=== PATIENT | male | born 1985 | race Caucasian/White ===

== ENCOUNTER 2016-02-27 11:43 | Day surgery (SDC) | payer BC ==
[~2016-02-27 11:43] MED LIST: RINGERS SOLUTION,LACTATED 1,000 ML IV PRN
[2016-02-27] MEDS ORDERED: BUPIVACAINE HCL 50 ML VIAL IJ ONE ×2 (13:09)
[2016-02-27] MEDS ORDERED: BACITRACIN ZINC 30 APPL TUBE TP ONE (13:10)
[2016-02-27 15:14] VITALS: BP 116/66
== END 2016-02-27 11:44 | disposition home or self-care (01) ==
LOC: AMB 11:43
PROVIDERS: ATTEND Urology
PROC: 0VBQ0ZZ Excision of Bilateral Vas Deferens, Open Approach (ICD-10-PCS; principal; 2016-02-27 12:30)
DX: Z30.2 Encounter for sterilization (principal); Z68.23 Body mass index [BMI] 23.0-23.9, adult